=== PATIENT | female | born 1980 | race American Indian/Alaskan Native ===

== ENCOUNTER 2018-10-22 16:22 | Emergency (ER) | payer OTHER ==
--- NOTE | 2018-10-22 16:49 | Emergency Department Report ---
Blank Doc - Documentation Documentation: this is a 38-year-old female that presents with acute on chronic intermittent headaches. Denies any head trauma. Denies worst headache or thunderclap headache. Denies any vomiting or blurry vision. This initial assessment/diagnostic orders/clinical plan/treatment(s) is/are s ubject to change based on patient's health status, clinical progression and re- assessment by fellow clinical providers in the ED. Further treatment and workup at subsequent clinical providers discretion. Patient/guardians urged not to elope from the ED as their condition may be serious if not clinically assessed and managed. Initial orders include: 1- Patient sent to [facility] for further evaluation and treatment
[2018-10-22] MEDS ORDERED: ZOFRAN ODT PO ONE (17:38)
[2018-10-22] MEDS ORDERED: BENADRYL PO ONE (17:38)
[2018-10-22] MEDS ORDERED: FIORICET PO ONE (17:38)
--- NOTE | 2018-10-22 17:55 | Emergency Department Report ---
ED Headache HPI - General Chief Complaint: Headache Stated Complaint: HEADACHE/VOMITING/WEAK Time Seen by Provider: 10/22/18 16:48 Source: patient - History of Present Illness Initial Comments: Patient is a 38-year-old female presents to ED complaining of temporal, throbbing in headache intermittently for the past 2 weeks that got worse today while she was at work. Patient states that she started experiencing mild nausea along with a headache. Patient states that she's been taking Tylenol and took Goody powder earlier today. Patient states this resolves the pain somewhat but not all the way. Patient states she may have been under a lot of stress recently at work and home. Patient states last menstrual cycle September 19 2018 and is on contraceptives NuvaRing. She denies any trauma or injuries to the head. Timing/Duration: 1 week Quality: moderate, achy, throbbing Head Injury Location: temporal Recent Head Trauma: no recent headache/trauma Modifying Factors: worse with: exposure to light Associated Symptoms: other (nausea). denies: confusion, fatigue, facial pain, fever/chills, nausea/vomiting, nasal congestion Allergies/Adverse Reactions: Allergies amoxicillin Allergy (Verified 10/22/18 16:23) Rash metronidazole [From Metrogel] Allergy (Verified 10/22/18 16:23) Rash Home Medications: Ambulatory Orders Prochlorperazine [Compazine] 10 mg PO Q8HR #30 tablet 10/22/18 ED Review of Systems ROS: Stated complaint: HEADACHE/VOMITING/WEAK Other details as noted in HPI Comment: All other systems reviewed and negative ED Past Medical Hx - Past Medical History Hx Hypertension: Yes - Surgical History Hx Appendectomy: Yes - Social History Smoking Status: Never Smoker Substance Use Type: None - Medications Home Medications: Home Medications Medication Instructions Recorded Confirmed Last Taken Type Prochlorperazine [Compazine] 10 mg PO Q8HR #30 tablet 10/22/18 Unknown Rx ED Physical Exam - General Limitations: No Limitations General appearance: alert, in no apparent distress - Head Head exam: Present: atraumatic, normocephalic - Eye Eye exam: Present: normal appearance - ENT ENT exam: Present: mucous membranes moist - Neck Neck exam: Present: normal inspection - Respiratory Respiratory exam: Present: normal lung sounds bilaterally. Absent: respiratory distress - Cardiovascular Cardiovascular Exam: Present: regular rate, normal rhythm. Absent: systolic murmur, diastolic murmur, rubs, gallop - GI/Abdominal GI/Abdominal exam: Present: soft, normal bowel sounds - Extremities Exam Extremities exam: Present: normal inspection - Back Exam Back exam: Present: normal inspection - Neurological Exam Neurological exam: Present: alert, oriented X3, normal gait - Expanded Neurological Exam Expanded Patient oriented to: Present: person, place, time Speech: Present: fluid speech Cerebellar function: Finger to Nose: Normal Sensory exam: Upper Extremity Light Touch: Normal, Lower Extremity Light Touch: Normal Motor strength exam: RUE: 5, LUE: 5, RLE: 5, LLE: 5 Best Eye Response ([place]): (4) open spontaneously Best Motor Response ([place]): (6) obeys commands Best Verbal Response ([place]): (5) oriented [place] Total: 15 - Psychiatric Psychiatric exam: Present: normal affect, normal mood - Skin Skin exam: Present: warm, dry, intact, normal color. Absent: rash ED Course Vital Signs 10/22/18 16:48 Temperature 98.6 F Pulse Rate 92 H Respiratory 20 Rate Blood Pressure 144/90 [Right] O2 Sat by Pulse 99 Oximetry ED Medical Decision Making - Medical Decision Making 38-year-old female presents with a headache. Discussed symptoms of migraine with aura with the patient. Discussed medications to help resolve this. Discussed with the patient to avoid trigger factors such as stress, dehydration. Scars follow up with her primary care physician. Discussed neurologist for possible given. Vital signs are normal patient is in no acute distress. Critical care attestation.: If time is entered above; I have spent that time in minutes in the direct care of this critically ill patient, excluding procedure time. ED Disposition Clinical Impression: Migraine headache with aura Disposition: DC-01 TO HOME OR SELFCARE Is pt being admited?: No Does the pt Need Aspirin: No Condition: Stable Instructions: Acute Headache (ED), Migraine Headache (ED) Additional Instructions: Make sure to follow up with the primary care physician as discussed. Take all your medications as you've been prescribed. If you have any worsening symptoms or develop new symptoms please return to ED immediately. Prescriptions: Prochlorperazine [Compazine] 10 mg PO Q8HR #30 tablet Referrals: ILAN REDDY MD [Referring] - 3-5 Days [facility] [Provider Group] - 3-5 Days Forms: Accompanied Note, Work/School Release Form(ED) Time of Disposition: 18:09
[2018-10-22 18:25] VITALS: BP 136/86
== END 2018-10-22 18:24 | disposition home or self-care (01) ==
LOC: ED 16:22
DX: G43.109 Migraine with aura, not intractable, without status migrainosus (principal); I10 Essential (primary) hypertension; Z90.49 Acquired absence of other specified parts of digestive tract; Z88.1 Allergy status to other antibiotic agents
CPT/HCPCS: 99282; Q0162

== ENCOUNTER 2019-06-01 17:24 | Emergency (ER) | payer OTHER ==
[2019-06-01] MEDS ORDERED: ASPIRIN 325 MG TAB PO ONE (17:56)
[2019-06-01 18:32] VITALS: BP 153/97
--- NOTE | 2019-06-01 18:35 | Emergency Department Report ---
Blank Doc - Documentation Documentation: 38 Y/O FEMALE S/P LIFTING INJURY BACK PAIN 3 DAYS AGO AND SEEN AT [facility]. DX WITH SCIATICA C/O OF WORSENING PAIN . SEEN AT HER PCP TODAY AND ADVISED TO COME TO THE ED DUE TO INABILITY TO WALK. NO SADDLE PARSTHESIA OR URINARY ISSUES. The patient was seen in triage for SEVERE BACK PAIN. Labs/imaging ordered to evaluate for a cause of this complaint. Vital signs reviewed, patient awake and alert in NAD.
--- NOTE | 2019-06-01 19:23 | XRay Report ---
Lumbosacral spine, 3 views INDICATION: Back pain following injury 5 days ago FINDINGS: The vertebral body heights and disc spaces are preserved. No fracture or spondylolisthesis. No spurring or arthritis. No bony abnormality identified. Impression: Normal lumbar spine radiograph. Signer Name: Rashid Cuadra MD Signed: 06/01/2019 7:19 PM Workstation Name: [id number]
[2019-06-01] MEDS ORDERED: dexAMETHasone 20 MG/5 ML VIAL IM ONE (19:41)
[2019-06-01] MEDS ORDERED: MORPHINE 4 MG/1 ML INJ IM ONE (19:42)
[2019-06-01] MEDS ORDERED: ONDANSETRON 4 MG ODT TAB PO ONE (19:44)
--- NOTE | 2019-06-01 21:07 | Emergency Department Report ---
ED Back Pain/Injury HPI - General Chief Complaint: Back Pain/Injury Stated Complaint: RT LEG PAIN Time Seen by Provider: 06/01/19 18:28 Source: EMS Limitations: No Limitations - History of Present Illness Initial Comments: 38 Y/O FEMALE S/P LIFTING INJURY BACK PAIN 3 DAYS AGO AND SEEN AT [facility] YESTERDAY. DX WITH SCIATICA C/O OF WORSENING PAIN . SEEN AT HER PCP TODAY AND ADVISED TO COME TO THE ED DUE TO INABILITY TO WALK. NO SADDLE PARSTHESIA OR URINARY ISSUES. pain described as 5/10 aching burning radiating to right buttocks and leg. there is no loss or decrease in bowel or bladder fuction. pt is now ambulatory with minimal gait disturbance. MD Complaint: back pain, back injury Onset/Timin -: days(s) Similar Symptoms Previously: Yes Place: work Radiation: buttocks, right leg Severity: moderate Severity scale (0 -10): 5 Quality: burning, sharp Consistency: constant Worsens With: movement, sitting upright, walking Context: while lifting, turning/twisting Associated Symptoms: difficulty walking. denies: weakness, difficulty urinatin g, incontinence, fever/chills, constipation - Related Data Previous Rx's Medication Instructions Recorded Last Taken Type Prochlorperazine [Compazine] 10 mg PO Q8HR #30 tablet 10/22/18 Unknown Rx traMADoL [Ultram] 50 mg PO Q6HR PRN #12 tablet 06/01/19 Unknown Rx Allergies Allergy/AdvReac Type Severity Reaction Status Date / Time amoxicillin Allergy Rash Verified 06/01/19 19:40 metronidazole [From Metrogel] Allergy Rash Verified 06/01/19 19:40 ED Review of Systems ROS: Stated complaint: RT LEG PAIN Other details as noted in HPI Constitutional: denies: chills, fever Eyes: denies: eye pain, eye discharge, vision change ENT: denies: ear pain, throat pain Respiratory: denies: cough, shortness of breath, wheezing Cardiovascular: denies: chest pain, palpitations Endocrine: no symptoms reported Gastrointestinal: denies: abdominal pain, nausea, vomiting, diarrhea Genitourinary: denies: urgency, dysuria, frequency, hematuria, discharge Musculoskeletal: back pain, myalgia Skin: denies: rash, lesions Neurological: denies: headache, weakness, paresthesias Psychiatric: denies: anxiety, depression Hematological/Lymphatic: denies: easy bleeding, easy bruising ED Past Medical Hx - Past Medical History Previous Medical History?: Yes Hx Hypertension: Yes - Surgical History Past Surgical History?: Yes Hx Appendectomy: Yes - Social History Smoking Status: Never Smoker Substance Use Type: None - Medications Home Medications: Home Medications Medication Instructions Recorded Confirmed Last Taken Type Prochlorperazine [Compazine] 10 mg PO Q8HR #30 tablet 10/22/18 Unknown Rx traMADoL [Ultram] 50 mg PO Q6HR PRN #12 tablet 06/01/19 Unknown Rx ED Physical Exam - General Limitations: No Limitations General appearance: alert, in no apparent distress - Head Head exam: Present: atraumatic, normocephalic - Eye Eye exam: Present: normal appearance, PERRL, EOMI Pupils: Present: normal accommodation - ENT ENT exam: Present: mucous membranes moist - Neck Neck exam: Present: normal inspection, full ROM. Absent: tenderness, meningismus - Expanded Neck Exam Expanded Neck exam: Absent: tenderness, midline deformity, anterior neck swelling, tracheal deviation - Respiratory Respiratory exam: Present: normal lung sounds bilaterally. Absent: respiratory distress, wheezes, stridor, chest wall tenderness - Cardiovascular Cardiovascular Exam: Present: regular rate, normal rhythm, normal heart sounds. Absent: systolic murmur, diastolic murmur, rubs, gallop - GI/Abdominal GI/Abdominal exam: Present: soft, normal bowel sounds. Absent: distended, tenderness, bruit, hernia - Rectal Rectal exam: Present: deferred - Extremities Exam Extremities exam: Present: normal inspection, full ROM, normal capillary refill. Absent: tenderness - Back Exam Back exam: Present: normal inspection, full ROM, tenderness (no posterior vertebral point tenderness ), muscle spasm, paraspinal tenderness. Absent: CVA tenderness (R), CVA tenderness (L), vertebral tenderness, rash noted - Expanded Back Exam Expanded Back exam: Absent: saddle anesthesia Back exam: Positive Straight Leg Raise: Right, Negative Straight Leg Raising: Left - Neurological Exam Neurological exam: Present: alert, oriented X3, CN II-XII intact, normal gait, reflexes normal. Absent: motor sensory deficit - Expanded Neurological Exam Expanded Patient oriented to: Present: person, place, time Speech: Present: fluid speech Motor strength exam: RUE: 5, LUE: 5, RLE: 5, LLE: 5 DTR: ankle (R): 2+, ankle (L): 2+ Best Eye Response ([place]): (4) open spontaneously Best Motor Response ([place]): (6) obeys commands Best Verbal Response ([place]): (5) oriented [place] Total: 15 - Psychiatric Psychiatric exam: Present: normal affect, normal mood - Skin Skin exam: Present: warm, dry, intact, normal color. Absent: rash ED Course Vital Signs 06/01/19 06/01/19 18:29 20:01 Temperature 97.8 F Pulse Rate 100 H Respiratory 16 18 Rate Blood Pressure 153/97 O2 Sat by Pulse 100 Oximetry ED Medical Decision Making - Radiology Data Radiology results: report reviewed, image reviewed Ordering Physician: YESSENIA ALCARAZ Date of Service: 06/01/19 Procedure(s): XR spine lumbosacral 2-3V Accession Number(s): [id number] cc: YESSENIA ALCARAZ Fluoro Time In Minutes: Lumbosacral spine, 3 views INDICATION: Back pain following injury 5 days ago FINDINGS: The vertebral body heights and disc spaces are preserved. No fracture or spondylolisthesis. No spurring or arthritis. No bony abnormality identified. Impression: Normal lumbar spine radiograph. Signer Name: Rashid Cuadra MD Signed: 06/01/2019 7:19 PM Workstation Name: [id number] Transcribed By: Dictated By: Rashid Cuadra MD Electronically Authenticated By: Rashid Cuadra MD Signed Date/Time: 06/01/191918 DD/ 17 TD/TT: - Medical Decision Making pain improved, pt is ambulatory with steady gait at this time, pain is now rated at 2/10 , plan: dc to home with rx for ultram pain breakthrough pain, continue nsaids, muscle relaxants as rx'd follow up with ortho in 2-3 days as scheduled. pt verbalized agreement and understanding of same, pt dc'd to home in stable condition at this time. Critical care attestation.: If time is entered above; I have spent that time in minutes in the direct care of this critically ill patient, excluding procedure time. ED Disposition Clinical Impression: Sciatic leg pain Low back strain Qualifiers: Encounter type: initial encounter Qualified Code(s): S39.012A - Strain of muscle, fascia and tendon of lower back, initial encounter Disposition: - TO HOME OR SELFCARE Is pt being admited?: No Does the pt Need Aspirin: No Condition: Stable Instructions: Lumbar Radiculopathy (ED), Low Back Strain (ED), Core Strengthening Exercises (GEN) Prescriptions: traMADoL [Ultram] 50 mg PO Q6HR PRN #12 tablet PRN Reason: Pain Referrals: GREG ARMAS MD [Primary Care Provider] - 3-5 Days MISAEL HERNANDEZ MD [Staff Physician] - 3-5 Days Forms: Work/School Release Form(ED) Time of Disposition: 21:16
== END 2019-06-01 21:24 | disposition home or self-care (01) ==
LOC: ED 17:24
DX: S39.012A Strain of muscle, fascia and tendon of lower back, initial encounter (principal); I10 Essential (primary) hypertension; Z90.89 Acquired absence of other organs; Z88.1 Allergy status to other antibiotic agents; X50.9XXA Other and unspecified overexertion or strenuous movements or postures, initial encounter; Y93.89 Activity, other specified; Y92.69 Other specified industrial and construction area as the place of occurrence of the external cause; Y99.8 Other external cause status
CPT/HCPCS: 72100; 96372; 99283; J1100; J2270; Q0162